=== PATIENT | male | born 1950 | race Caucasian/White ===

== ENCOUNTER 2023-07-17 10:55 | Outpatient (AMB) | payer MEDICARE, MEDICAID, SELFPAY ==
[2023-07-17 11:04] VITALS: BP 124/80; PULSE 60
--- NOTE | 2023-07-17 11:04 | HO.NEPHOV ---
HPI HPI Comments History of Present Illness Details I had the pleasure of seeing Nino in follow-up of his chronic kidney disease. He feels well he does not have any chest pains, shortness of breath, paroxysmal nocturnal dyspnea, orthopnea, pedal edema or urinary symptoms. She has no orthostatic symptoms. He is closely followed by his retirement consultant. He is tolerating all his current medications. His renal functions have been stable. He tries to avoid nonsteroidal anti-inflammatory medications and tries to remain well hydrated. There were no new active issues during this office visit. [facility] Medical History (Updated 07/21/23 @ 12:40 by Cornelio Garza MD) Carpal tunnel syndrome Chronic kidney disease Hypertension Surgical History (Updated 07/17/23 @ 11:09 by Mary Carmen Medrano MA) H/O heart artery stent S/P carpal tunnel release History of knee replacement Social History (Updated 07/17/23 @ 11:10 by Mary Carmen Medrano MA) Alcohol intake: never Patient Tobacco Use Status: Former Tobacco user Vital Signs 07/17/23 11:04 Height 5 ft 7 in Weight 191 lb 6 oz BMI 30.0 BP 124/80 Blood Pressure Location Lt brachial Position Sitting Pulse 60 Pulse Source Pulse Oximeter Physical Exam Vital Signs: Last Vital Signs Pulse 60 07/17/23 11:04 BP 124/80 07/17/23 11:04 BMI result Body Mass Index 30.0 Const General: comfortable and no acute distress Orientation/consciousness: patient oriented x3 HEENT Head: Yes normocephalic Mouth: Normal oral and palatal mucosa present Eyes EOM: EOMs intact bilaterally Neck Neck: Yes supple Resp Auscultation: clear to auscultation bilaterally Cardio Jugular venous distension: no JVD Rate: regular rate GI Palpation (GI): Soft to palpation Auscultation: normal bowel sounds General: Yes no CVA tenderness Back/Spine/Pelvis Back: no CVA tenderness Skin General skin exam: no rashes or lesions noted Neuro General: patient oriented x3 and moves all extremities Extrem General: Yes no pedal edema Assessment & Plan Assessment & Plan (1) CKD (chronic kidney disease) stage 3, GFR 30-59 ml/min: Code(s): N18.30 - Chronic kidney disease, stage 3 unspecified Qualifiers: Chronic kidney disease stage 3 subtype: stage 3a (GFR 45-59) Qualified Code(s): N18.31 - Chronic kidney disease, stage 3a (2) Hypertension: Code(s): I10 - Essential (primary) hypertension Qualifiers: Hypertension type: primary hypertension Qualified Code(s): I10 - Essential (primary) hypertension Plan Nino has stage 3 chronic kidney disease at baseline. His renal functions are currently stable. His volume status is optimal. His blood pressure is at goal. He is tolerating angiotensin receptor maribel. He is on statins. He closely follows up with his retirement consultant. He is not a diabetic. His retirement consultant is is looking into whether he is a candidate for [employer]. He should avoid nonsteroidal anti-inflammatory medications. I have ordered follow-up blood work and urine studies. No other medication changes were made at this office visit. Follow-up appointment was given. Time spend for retrieval of data, patient encounter and recommendation 21 minutes. Orders: Orders Electrolytes 07/17/23 I10 - Essential (primary) hypertension, N18.30 - Chronic kidney disease, stage 3 unspecified Protein Creatinine Ratio, Ur 07/17/23 I10 - Essential (primary) hypertension, N18.30 - Chronic kidney disease, stage 3 unspecified Blood Urea Nitrogen 07/17/23 I10 - Essential (primary) hypertension, N18.30 - Chronic kidney disease, stage 3 unspecified Creatinine 07/17/23 I10 - Essential (primary) hypertension, N18.30 - Chronic kidney disease, stage 3 unspecified Calcium 07/17/23 I10 - Essential (primary) hypertension, N18.30 - Chronic kidney disease, stage 3 unspecified Coding Level of Care Code Est Pt Level 3 (30805) Diagnoses Stage 3a chronic kidney disease N18.31 Chronic kidney disease stage 3 subtype: stage 3a (GFR 45-59) Primary hypertension I10 Hypertension type: primary hypertension
== END 2023-07-17 11:41 | disposition home or self-care (01) ==
PROVIDERS: PCP Internal Medicine; Visit Provider Internal Medicine Nephrology
DX: I12.9 Hypertensive chronic kidney disease with stage 1 through stage 4 chronic kidney disease, or unspecified chronic kidney disease (principal); N18.31 Chronic kidney disease, stage 3a; Z79.811 Long term (current) use of aromatase inhibitors; Z79.02 Long term (current) use of antithrombotics/antiplatelets
CPT/HCPCS: 99213

== ENCOUNTER → 2023-07-17 10:55 | Outpatient (BNVA) | payer MEDICARE, OTHER, SELFPAY | PROVIDERS: PCP Internal Medicine; Visit Provider Internal Medicine Nephrology | DX: I11.0 Hypertensive heart disease with heart failure (principal); N18.31 Chronic kidney disease, stage 3a | CPT/HCPCS: 99212 ==

== ENCOUNTER 2024-07-19 09:23 | Outpatient (AMB) | payer MEDICARE, SELFPAY ==
--- NOTE | 2024-07-19 09:27 | HO.NEPHOV ---
Vital Signs 07/19/24 09:28 Height 5 ft 7 in Weight 190 lb BMI 29.8 BP 124/70 Blood Pressure Location Rt brachial Position Sitting Pulse 71 Pulse Source Pulse Oximeter Pulse Oximetry (%) 96 Oxygen Delivery Method Room Air Intake Visit Reasons: 1Y follow up Yarder Boss Required: No Accompanied by: Self / Same As Patient Allergies Sulfa (Sulfonamide Antibiotics) Allergy (Verified 07/19/24 09:28) Unknown HPI Comments Details: Nino was seen in follow-up of his chronic kidney disease. He feels well he does not have any chest pains, shortness of breath, paroxysmal nocturnal dyspnea, orthopnea, pedal edema or urinary symptoms. He has no orthostatic symptoms. He is closely followed by his resource director. He is tolerating all his current medications. His renal functions have been stable. He tries to avoid nonsteroidal anti-inflammatory medications and tries to remain well hydrated. There were no new active issues during this office visit. [facility] Medical History (Updated 07/21/23 @ 12:40 by Cornelio Garza MD) Carpal tunnel syndrome Chronic kidney disease Hypertension Surgical History (Updated 07/17/23 @ 11:09 by Mary Carmen Medrano MA) H/O heart artery stent S/P carpal tunnel release History of knee replacement Social History (Updated 07/17/23 @ 11:10 by Mary Carmen Medrano MA) Alcohol intake: never Patient Tobacco Use Status: Former Tobacco user Review of Systems Const All systems reviewed & are unremarkable except as noted in HPI and below Physical Exam Const General: comfortable and no acute distress Orientation/consciousness: patient oriented x3 HEENT Head: Yes normocephalic Mouth: Normal oral and palatal mucosa present Eyes EOM: EOMs intact bilaterally Neck Neck: Yes supple Resp Auscultation: clear to auscultation bilaterally Cardio Jugular venous distension: no JVD Rate: regular rate GI Palpation (GI): Soft to palpation Auscultation: normal bowel sounds General: Yes no CVA tenderness Back/Spine/Pelvis Back: no CVA tenderness Skin General skin exam: no rashes or lesions noted Neuro General: patient oriented x3 and moves all extremities Extrem General: Yes no pedal edema Results Reviewed Nephrology Results: No Data to Display Assessment & Plan Assessment & Plan (1) CKD (chronic kidney disease) stage 3, GFR 30-59 ml/min: Code(s): N18.30 - Chronic kidney disease, stage 3 unspecified Category: Medical Qualifiers: Chronic kidney disease stage 3 subtype: stage 3a (GFR 45-59) Qualified Code(s): N18.31 - Chronic kidney disease, stage 3a (2) Hypertension: Code(s): I10 - Essential (primary) hypertension Category: Medical Qualifiers: Hypertension type: primary hypertension Qualified Code(s): I10 - Essential (primary) hypertension Plan Nino has stage 3 chronic kidney disease at baseline. His renal functions has been stable. His volume status is optimal. His blood pressure is at goal. He is tolerating angiotensin receptor maribel. He is on statins. He closely follows up with his resource director. He is not a diabetic. His resource director is is looking into whether he is a candidate for [employer]. He should avoid nonsteroidal anti-inflammatory medications. I have ordered follow-up blood work and urine studies. No other medication changes were made at this office visit. Follow-up appointment given in a year. Orders: Orders Creatinine 1 Year I10 - Essential (primary) hypertension, N18.31 - Chronic kidney disease, stage 3a Blood Urea Nitrogen 1 Year I10 - Essential (primary) hypertension, N18.31 - Chronic kidney disease, stage 3a Parathyroid Hormone Intact 1 Year I10 - Essential (primary) hypertension, N18.31 - Chronic kidney disease, stage 3a Protein Creatinine Ratio, Ur 1 Year I10 - Essential (primary) hypertension, N18.31 - Chronic kidney disease, stage 3a Electrolytes 1 Year I10 - Essential (primary) hypertension, N18.31 - Chronic kidney disease, stage 3a Calcium 1 Year I10 - Essential (primary) hypertension, N18.31 - Chronic kidney disease, stage 3a Complete Blood Count Auto Diff 1 Year I10 - Essential (primary) hypertension, N18.31 - Chronic kidney disease, stage 3a Coding Level of Care Code Est Pt Level 4 (56663) Diagnoses Stage 3a chronic kidney disease N18.31 Chronic kidney disease stage 3 subtype: stage 3a (GFR 45-59) Primary hypertension I10 Hypertension type: primary hypertension
[2024-07-19 09:28] VITALS: BP 124/70; PULSE 71; O2SAT 96; BMI 29.8
== END 2024-07-19 09:43 | disposition home or self-care (01) ==
PROVIDERS: PCP Internal Medicine; Visit Provider Internal Medicine Nephrology
DX: N18.31 Chronic kidney disease, stage 3a (principal); I10 Essential (primary) hypertension
CPT/HCPCS: 99214

== ENCOUNTER → 2024-07-19 09:23 | Outpatient (BNVA) | payer MEDICARE, SELFPAY | PROVIDERS: PCP Internal Medicine; Visit Provider Internal Medicine Nephrology | DX: I12.9 Hypertensive chronic kidney disease with stage 1 through stage 4 chronic kidney disease, or unspecified chronic kidney disease (principal); N18.31 Chronic kidney disease, stage 3a | CPT/HCPCS: 99212 ==

== ENCOUNTER 2025-07-20 09:23 | Outpatient (AMB) | payer MEDICARE, SELFPAY ==
--- NOTE | 2025-07-20 09:28 | HO.NEPHOV ---
Vital Signs 07/20/25 09:37 Height 5 ft 7 in Weight 188 lb 4 oz BMI 29.5 BP 130/60 Blood Pressure Location Lt brachial Position Sitting Pulse 62 Pulse Source Pulse Oximeter Pulse Oximetry (%) 94 Oxygen Delivery Method Room Air Intake Visit Reasons: 1Y follow up-[facility] Regeneration Operator Required: No Accompanied by: Significant Other Allergies Sulfa (Sulfonamide Antibiotics) Allergy (Verified 07/20/25 09:35) Unknown HPI Comments Details: Nino was seen in follow-up of his chronic kidney disease. He feels well he does not have any chest pains, shortness of breath, paroxysmal nocturnal dyspnea, orthopnea, pedal edema or urinary symptoms. He has no orthostatic symptoms. He is closely followed by his folding rules printing machine operator. He is tolerating all his current medications. His renal functions have been stable. He tries to avoid nonsteroidal anti-inflammatory medications and tries to remain well hydrated. He has been having rising PSA and is due to have prostatic biopsy soon. There were no new active issues during this office visit. [facility] Medical History (Updated 07/21/23 @ 12:40 by Cornelio Garza MD) Carpal tunnel syndrome Chronic kidney disease Hypertension Surgical History H/O heart artery stent S/P carpal tunnel release History of knee replacement Social History Alcohol intake: never Patient Tobacco Use Status: Former Tobacco user Review of Systems Const All systems reviewed & are unremarkable except as noted in HPI and below Physical Exam Vital Signs: Last Vital Signs Pulse 62 07/20/25 09:37 BP 130/60 07/20/25 09:37 Pulse Ox 94 07/20/25 09:37 Oxygen Delivery Method Room Air 07/20/25 09:37 BMI result Body Mass Index 29.5 Const General: comfortable and no acute distress Orientation/consciousness: patient oriented x3 HEENT Head: Yes normocephalic Mouth: Normal oral and palatal mucosa present Eyes EOM: EOMs intact bilaterally Neck Neck: Yes supple Resp Auscultation: clear to auscultation bilaterally Cardio Jugular venous distension: no JVD Rate: regular rate GI Palpation (GI): Soft to palpation Auscultation: normal bowel sounds General: Yes no CVA tenderness Back/Spine/Pelvis Back: no CVA tenderness Skin General skin exam: no rashes or lesions noted Neuro General: patient oriented x3 and moves all extremities Extrem General: Yes no pedal edema Assessment & Plan Assessment & Plan (1) CKD (chronic kidney disease) stage 3, GFR 30-59 ml/min: Code(s): N18.30 - Chronic kidney disease, stage 3 unspecified Category: Medical Qualifiers: Chronic kidney disease stage 3 subtype: stage 3a (GFR 45-59) Qualified Code(s): N18.31 - Chronic kidney disease, stage 3a (2) Hypertension: Code(s): I10 - Essential (primary) hypertension Category: Medical Qualifiers: Hypertension type: primary hypertension Qualified Code(s): I10 - Essential (primary) hypertension Plan Nino has stage 3 chronic kidney disease at baseline. His renal functions has been stable. His volume status is optimal. His blood pressure is at goal. He is tolerating angiotensin receptor maribel. He is on statins. He closely follows up with his folding rules printing machine operator. He is not a diabetic. His folding rules printing machine operator is is looking into whether he is a candidate for [employer]. He should avoid nonsteroidal anti-inflammatory medications. I have ordered follow-up blood work and urine studies. No other medication changes were made at this office visit. Follow-up appointment given in a year. Orders: Orders Protein Creatinine Ratio, Ur 1 Year I10 - Essential (primary) hypertension, N18.31 - Chronic kidney disease, stage 3a Blood Urea Nitrogen 1 Year I10 - Essential (primary) hypertension, N18.31 - Chronic kidney disease, stage 3a Electrolytes 1 Year I10 - Essential (primary) hypertension, N18.31 - Chronic kidney disease, stage 3a Creatinine 1 Year I10 - Essential (primary) hypertension, N18.31 - Chronic kidney disease, stage 3a Calcium 1 Year I10 - Essential (primary) hypertension, N18.31 - Chronic kidney disease, stage 3a Coding Level of Care Code Est Pt Level 4 (02857) Diagnoses Stage 3a chronic kidney disease N18.31 Chronic kidney disease stage 3 subtype: stage 3a (GFR 45-59) Primary hypertension I10 Hypertension type: primary hypertension
[2025-07-20 09:37] VITALS: BP 130/60; PULSE 62; O2SAT 94; BMI 29.5
--- OUTSIDE RECORDS SUMMARY | 2025-07-20 10:45 | XMS_ITS | Clinical Summary ---
Author Organization [facility] [employer] Address [address] [place] [address] Phone Care Team Providers Care Tube Sorter Name Role Phone Abbey Hunter MD Primary Care Provide r Allergies Active Allergy Reactions Criticality Noted Date Comments Lisinopril Cough 11/14/2021 Sulfadiazine Swelling 11/14/2021 Other Reaction(s): Rash/Dermatitis Medications vitamin B complex vit C no.3 (B COMPLEX PLUS VITAMIN C ORAL) daily. 5 Active multivitamin (Multiple Vitamins) tablet daily. 5 Active aspirin 81 mg EC tablet 81 mg daily. 8 Active cyanocobalamin (VITAMIN B-12) 1,000 mcg tablet Take 1,000 mcg by mouth daily. Active omega-3 acid ethyl esters (LOVAZA) 1 gram capsule 1 tablet in the am, 2 tablet nightly 5 Active amLODIPine (NORVASC) 10 mg tablet TAKE 1 TABLET BY MOUTH EVERY DAY 90 tablet 1 5 Active carvediloL (COREG) 25 mg tablet TAKE 1 TABLET BY MOUTH TWICE A DAY 180 tablet 2 5 Active fenofibrate (TRICOR) 145 mg tablet TAKE 1 TABLET BY MOUTH 1 TIME EACH DAY. 90 tablet 2 5 Active hydroCHLOROthi azide (HYDRODIURIL) 25 mg tablet TAKE 1 TABLET BY MOUTH TWICE A DAY 180 tablet 2 5 Active valsartan (DIOVAN) 160 mg tablet TAKE 1 TABLET BY MOUTH 2 TIMES A DAY. 180 tablet 1 5 Active atorvastatin (LIPITOR) 80 mg tablet TAKE 1 TABLET BY MOUTH 1 TIME EACH DAY. 90 tablet 1 5 Active atorvastatin (LIPITOR) 80 mg tablet TAKE 1 TABLET BY MOUTH 1 TIME EACH DAY. 90 tablet 1 5 06/28/20 25 Discontinued Active Problems Problem Noted Date Diagnosed Date Chest pain 11/14/2021 Assessment & Plan (08/16/2024 11:18 AM EST): Orders: ECG 12 lead Class 1 obesity 11/14/2021 Chronic kidney disease 01/28/2021 Coronary artery disease 01/28/2021 Overview (07/12/2024): Last Assessment & Plan: Patient has history of coronary artery disease status post CECE to OM1 03/2019. He feels well and denies any exertional anginal symptoms. He continues on cardioprotective medical therapy with aspirin, beta-maribel and statin. I have reviewed with the patient the importance of a heart healthy lifestyle which includes eating a low-fat low-salt diet, getting regular exercise, maintaining a healthy weight, not smoking, and following up with routine medical care. Assessment & Plan (08/16/2024 11:18 AM EST): Patient with a history of coronary artery disease. Status post remote stenting in 2019. No recurrent anginal symptoms at this time remains on good risk factor modification without any symptomatic limitations. Continue present therapy with risk factor modification The above note was prepared with the help of voice recognition software. Please excuse any grammatical or spelling errors that may have occurred Hyperlipidemia 01/28/2021 Overview (07/12/2024): Last Assessment & Plan: Patient's last LDL cholesterol was 43. This is at goal. Continue with statin as prescribed. Hypertension 01/28/2021 Overview (07/12/2024): Last Assessment & Plan: Patient's blood pressure under excellent control with a reading today of 128/72. Continue with medical therapies as prescribed. 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 DX:Nephritis and nephrop athy, with pathological lesion in kidney Chronic ischemic heart disease D X:Chronic ischemic heart disease Positive extractable nuclear antigen test (CMS/HCC V24) DX:Positive extractable nucl ear antigen test (HCC) Cataract DX:Cataract CKD (chronic kidney disease) DX: CKD (chronic kidney disease) Cobalamin deficiency DX:Cobalami n deficiency Cramp in limb DX:Cramp in limb Degeneration of lumbar inter vertebral disc DX:Degeneration of lumbar intervertebral disc Diverticulosis DX:Diverticulosi s Internal hemorrhoids DX:Internal hemorrhoids History of hepatitis A DX:Histor y of hepatitis A Hyperalbuminemia DX:Hyperalbumin emia Impotence DX:Impotence Kidney stone DX:Kidney stone Migraine DX:Migraine Multiple joint pain DX:Multiple joint pain Class 1 obesity DX:Class 1 obesi ty Pain in lower limb DX:Pain in lo wer limb Raised prostate specific antigen DX:Raised prostate specific antigen Tear of medial meniscus of knee DX:Tear of medial meniscus of knee Vitamin D deficiency DX:Vitamin D deficiency Family History Medical History Relation Name Comments Heart failure Brother Hypertension Brother Liver disease Brother Other: Atrial Fibrillation Brother Other: PVD Brother No Known Problems Father Breast cancer Mother Arthritis Sister 1 Hypertension Sister 1 Other: Hyperlipidemia Sister 1 Relation Name Status Comments Brother Father Mother Sister 1 Alive Sister 2 Social History Tobacco Use Types Packs/Day Years Used Date Smoking Tobacco: Former Cigarettes 0 Q uit: 1984 Smokeless Tobacco: Never Tobacco Cessation:Counseling Given: Not Answered Comments:Smoked 1 pack per week Alcohol Use Standard Drinks/Week Comments Never 0 (1 standard drink = 0.6 oz pur e alcohol) Sex and Gender Information Value Date Recorded Sex Assigned at Not on file Legal Sex Male 6:31 PM EST Gender Identity Not on file Sexual Orientation Not on file Obstetrics History Last Filed Vital Signs Vital Sign Reading Time Taken Comments Blood Pressure 132/78 08/16/2024 10:39 AM EST Pulse 71 08/16/2024 10:09 AM EST Temperature - - Respiratory Rate - - Oxygen Saturation 95% 08/16/2024 10:09 AM EST Inhaled Oxygen Concentration - - Weight 85.3 kg (188 lb) 08/16/2024 10:09 AM EST Height 170.2 cm (5' 7 ) 08/16/2024 10:09 AM EST Body Mass Index 29.44 08/16/2024 10:09 AM EST Plan of Treatment Upcoming Encounters Date Type Department Care Team (Late st Contact Info) Description 10/04/2025 2:30 PM EST Office Visit [facility] [address] [place] [address] Isaías Garcia MD [address] [place] [address] [address] [place] [address] Health Maintenance Due Date Last Done Comments Abdominal Aortic Aneurysm (AAA) Screen 08/16/2022 Cholesterol Screening (Lipid Panel) 08/16/2022 Falls Risk Assessment 08/16/2022 Hepatitis C Screening 08/16/2022 Medicare Annual Wellness Visit 08/16/2022 Social Influencers of Health Screening 08/16/2022 Hypertension/CHF/CAD Annual BMP Blood Test 08/17/2022 RSV Immunization Adult Patients (1 - 1-dose 75+ series) 2024 Depression Screening 09/07/2024 COVID-19 Vaccine ( season) 2025 06/02/2024, 05/25/2023, 01/09/2022, Additional history exists Influenza Vaccine (#1) 2025 , 05/25/2023, 06/20/2022, Additional history exists Colorectal Cancer Screening: Colonoscopy 11/14/2026 11/14/2016 DTaP,Tdap,and Td Vaccines (2 - Td or Tdap) 06/14/2030 06/14/2020 Pneumococcal Vaccine: 50+ Years Completed 05/26/2019, 11/21/2014 Zoster Vaccines Completed 09/01/2019, 06/08, 03/19/2016 HIB Vaccines Aged Out No longer eligi ble based on patient's age to complete this topic HPV Vaccines Aged Out No longer eligi ble based on patient's age to complete this topic Hepatitis A Vaccines Aged Out No long er eligible based on patient's age to complete this topic Hepatitis B Vaccines Aged Out No long er eligible based on patient's age to complete this topic IPV Vaccines Aged Out No longer eligi ble based on patient's age to complete this topic MMR Vaccines Aged Out No longer eligi ble based on patient's age to complete this topic Meningococcal ACWY Vaccine Aged Out N o longer eligible based on patient's age to complete this topic Meningococcal B Vaccine Aged Out No l onger eligible based on patient's age to complete this topic RSV Immunization Patients Under 20 months Aged Out No longer eligible based on patient's age to complete this topic Varicella Vaccines Aged Out No longer eligible based on patient's age to complete this topic Procedures Procedure Name Priority Date/Time Associated Diagnosis Comments COLONOSCOPY Routine 11/14/2016 12:18 PM EST from Last 3 Months or Most Recently Relevant to Health Maintenance Results * COLONOSCOPY (11/14/2016 12:18 PM EST) Anatomical Region Laterality Modality Endoscopy us Historical Provider GI~PROCEDURE ORDERABLES F inal Result from Last 3 Months or Most Recently Relevant to Health Maintenance Insurance MEDICAID - [place] MEDICARE Care Teams Tube Sorter Relationship Specialty Start Date End Date Abbey Hunter MD [address] [place] [address] MARCO Sullivan PCP - General 02/11/23
--- OUTSIDE RECORDS SUMMARY | 2025-07-20 10:45 | XMS_ITS | Clinical Summary ---
Author Organization [facility] Address [address] [facility] [address] [place] [address] Phone Care Team Providers Care Oyster Opener Name Role Phone Melinda Soto MD Primary Care Provider [phone] Allergies Active Allergy Reactions Criticality Noted Date Comments Lisinopril Other (see comments) 02/12/2021 Sulfa Antibiotics Other (see comments) 02/13/20 21 Medications Multiple Vitamin (MULTIVITAMIN ADULT PO) Take 1 tablet by mouth 1 (one) time each day Active Ullin-3 1000 MG capsule Take 1 capsule by mouth 2 (two) times a day Active amLODIPine (NORVASC) 10 MG tablet Take 1 tablet by mouth 1 (one) time each day Active aspirin (ST QUINTIN) 81 MG EC tablet Take 1 tablet by mouth 1 (one) time each day Active atorvastatin (LIPITOR) 80 MG tablet Take 1 tablet by mouth 1 (one) time each day Active carvedilol (COREG) 25 MG tablet Take 1 tablet by mouth 2 (two) times a day Active cyanocobalamin (VITAMIN B-12) 1000 MCG tablet Take 1 tablet by mouth 1 (one) time each day Active fenofibrate (TRICOR) 145 MG tablet Take 1 tablet by mouth 1 (one) time each day Active hydroCHLOROthia zide (HYDRODIURIL) 25 MG tablet Take 1 tablet by mouth 2 (two) times a day Active valsartan (DIOVAN) 160 MG tablet Take 1 tablet by mouth 2 (two) times a day Active Active Problems Problem Noted Date Diagnosed Date 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 Cataract 07/17/2022 Chronic kidney disease 07/17/2022 Cobalamin deficiency 07/17/2022 Cramp in limb 07/17/2022 Degeneration of lumbar intervertebral disc 07/17 Diverticula of intestine 07/17/2022 Diverticulosis of sigmoid colon 07/17/2022 History of hepatitis A 07/17/2022 Hyperalbuminemia 07/17/2022 Hypertriglyceridemia 07/17/2022 Internal hemorrhoids 07/17/2022 Migraine 07/17/2022 Pain of multiple joints 07/17/2022 Osteoarthritis of finger joint 07/17/2022 Pain in lower limb 07/17/2022 Prostate specific antigen above reference range 07/17/2022 Tear of medial meniscus of knee 07/17/2022 Vitamin D deficiency 07/17/2022 Impotence 07/17/2022 Acute nontraumatic kidney injury 02/12/2021 Stage 3a chronic kidney disease 02/12/2021 Hypertensive renal disease 02/12/2021 Hypertension 02/12/2021 Immunizations Immunization Administration Dates Next Due Pfizer SARS-COV-2 06/24/2021,11/07/2020,10/17/19 21 Pneumococcal Conjugate 13-Valent 05/26/2019 Shingrix 09/01/2019,06/29/2019 Tdap 06/14/2020 Zoster 03/19/2016 Family History Medical History Relation Comments Cancer Mother Relation Status Comments Father Mother Social History Tobacco Use Types Packs/Day Years Used Date Smoking Tobacco: Never Smokeless Tobacco: Never Tobacco Cessation:Counseling Given: Not Answered Alcohol Use Standard Drinks/Week Comments No 0 (1 standard drink = 0.6 oz pur e alcohol) Sex and Gender Information Value Date Recorded Sex Assigned at Not on file Legal Sex Male 4:55 PM EST Gender Identity Not on file Sexual Orientation Not on file Last Filed Vital Signs Vital Sign Reading Time Taken Comments Blood Pressure 130/72 07/17/2022 2:00 PM EST Pulse 72 07/17/2022 2:00 PM EST Temperature - - Respiratory Rate - - Oxygen Saturation 98% 10/03/2021 2:14 PM EST Inhaled Oxygen Concentration - - Weight 86.8 kg (191 lb 6.4 oz) 07/17/2022 2:00 P M EST Height 167.6 cm (5' 6 ) 02/09/2020 12:00 PM EDT Body Mass Index 30.89 02/09/2020 12:00 PM EDT Plan of Treatment Health Maintenance Due Date Last Done Comments Colorectal Cancer Screening: Annual FOBT 1998 Colorectal Cancer Screening: Colonoscopy 1998 Colorectal Cancer Screening: Sigmoidoscopy 1998 Pneumococcal Vaccine: 50+ Ye ars (2 of 2 - PPSV23, PCV20, or PCV21) 07/21/2019 05/26/2019 Influenza Vaccine (#1) 2025 Pneumococcal Vaccine: Peds ( 0 to 5 Years) and At-Risk Patients (6 to 49 Years) Discontinued 05/26/2019 Hepatitis B Vaccine Aged Out No longe r eligible based on patient's age to complete this topic Insurance [facility] Medicare [facility] Medicare Care Teams Oyster Opener Relationship Specialty Start Date End Date Melinda Soto MD [address] [place] [id number] PCP - General 09/17/20
== END 2025-07-20 09:59 | disposition home or self-care (01) ==
LOC: HO.HKAS 09:24
PROVIDERS: PCP Internal Medicine; Visit Provider Internal Medicine Nephrology
DX: N18.31 Chronic kidney disease, stage 3a (principal); I10 Essential (primary) hypertension
CPT/HCPCS: 99214

== ENCOUNTER → 2025-07-20 09:23 | Outpatient (BNVA) | payer MEDICARE, SELFPAY | PROVIDERS: PCP Internal Medicine; Visit Provider Internal Medicine Nephrology | DX: I12.9 Hypertensive chronic kidney disease with stage 1 through stage 4 chronic kidney disease, or unspecified chronic kidney disease (principal); N18.31 Chronic kidney disease, stage 3a; Z87.891 Personal history of nicotine dependence | CPT/HCPCS: 99212 ==